=== PATIENT | female | born 1990 | race American Indian/Alaskan Native ===

== ENCOUNTER 2017-11-05 13:20 | Inpatient (IN) | payer MEDICAID ==
[2017-11-05] MEDS ORDERED: BRETHINE SUB-Q PRN (14:10)
[2017-11-05] MEDS ORDERED: POLYCILLIN/NS 2 GM/100 ML 2 GM/100 ML BAG IV ONE ×2 (14:10→16:00)
[2017-11-05] MEDS ORDERED: STADOL IV PRN (14:10)
[2017-11-05] MEDS ORDERED: MINERAL OIL PO PRN (14:10)
[2017-11-05] MEDS ORDERED: XYLOCAINE 2% INFILTRATI ONE (14:10)
[2017-11-05] MEDS ORDERED: ePHEDrine SULFATE IV PRN ×2 (14:10→17:26)
[2017-11-05] MEDS ORDERED: BRETHINE IVP PRN (14:10)
[2017-11-05] MEDS ORDERED: SUBLIMAZE IV PRN (14:10)
[2017-11-05 15:34] LABS: Hematocrit 37.4 % (30.3-42.9); Hemoglobin 12.4 gm/dl (10.1-14.3); Mean Corpuscular HGB Conc 33 % (30-34); Mean Corpuscular Hemoglobin 32 pg (28-32); Mean Corpuscular Volume 95 fl (79-97); Platelet Count 190 K/mm3 (140-440); Red Blood Count 3.93 M/mm3 (3.65-5.03); Red Cell Distribution Width 14.3 % (13.2-15.2); White Blood Count 11.7 K/mm3 (4.5-11.0)
[2017-11-05] MEDS: LACTATED RINGERS 1,000 ML IV SCH ×3 (15:36→17:09)
[2017-11-05] MEDS ORDERED: NARCAN 2 MG/2 ML IV PRN (17:26)
--- NOTE | 2017-11-05 17:26 | Anesthesia Consultation ---
Anesthesia Consult and Med Hx Date of service: 11/05/17 - Airway Anesthetic Teeth Evaluation: Good ROM Head & Neck: Adequate Mental/Hyoid Distance: Adequate Mallampati Class: Class II Intubation Access Assessment: Probably Good - Pre-Operative Health Status ASA Pre-Surgery Classification: ASA2 Proposed Anesthetic Plan: Epidural, Spinal - Pulmonary Hx Asthma: No COPD: No Hx Pneumonia: No - Cardiovascular System Hx Hypertension: No - Central Nervous System Hx Seizures: No Hx Psychiatric Problems: No - Endocrine Hx Renal Disease: No Hx End Stage Renal Disease: No Hx Hypothyroidism: No Hx Hyperthyroidism: No - Hematic Hx Anemia: No Hx Sickle Cell Disease: No - Other Systems Hx Alcohol Use: No
[2017-11-05] MEDS ORDERED: POLYCILLIN/NS 1 GM/50 ML 1 GM/50 ML BAG IV SCH (18:00)
[2017-11-05] MEDS ORDERED: fentaNYL-BUPIV 2 MCG/ML-0.125% 200 MCG/100 ML BAG EPIDURAL SCH (18:00)
--- NOTE | 2017-11-05 18:20 | History and Physical Report ---
History of Present Illness Date of examination: 11/05/17 Date of admission: 11/05/17 14:57 Chief complaint: Leaking fluid, contractions History of present illness: Patient presents to triage today with c/o leaking fluid since 11:30am and painful contractions. She denies vaginal bleeding. She has a history of anemia this and vitamin D insufficiency. Currently on iron therapy. She is GBS positive. Past History Past Medical History: no pertinent history Past Surgical History: other (lymph node biopsy and removal) [employer] History: abnormal PAP smear, chlamydia Family/Genetic History: heart disease, hypertension, other (DVT, elevated cholesterol) Social history: single, other (living with significant other) - Obstetrical History Expected Date of Delivery: 11/02/17 Actual Gestation: 40 Week(s) 3 Day(s) : 4 Para: 1 Hx # Term Pregnancies: 1 Number of Pregnancies: 0 Spontaneous Abortions: 0 Induced : 2 Number of Living Children: 1 Medications and Allergies Allergies Allergy/AdvReac Type Severity Reaction Status Date / Time No Known Allergies Allergy Unverified 11/05/17 14:39 Home Medications Medication Instructions Recorded Confirmed Last Taken Type Multivitamin Tablet 1 tab PO DAILY 11/05/17 11/05/17 11/05/17 09:30 History Active Meds: Active Medications Butorphanol Tartrate (Stadol) 2 mg IV Q2H PRN PRN Reason: Pain , Severe (7-10) Last Admin: 11/05/17 15:55 Dose: 2 mg Ephedrine Sulfate (Ephedrine Sulfate) 10 mg IV Q2M PRN PRN Reason: Hypotension Ephedrine Sulfate (Ephedrine Sulfate) 10 mg IV Q2M PRN PRN Reason: Hypotension Fentanyl (Sublimaze) 100 mcg IV Q2H PRN PRN Reason: Labor Pain Lactated Ringer's (Lactated Ringers) 1,000 mls @ 125 mls/hr IV DIRECT PAULA Last Admin: 11/05/17 17:09 Dose: 125 mls/hr Oxytocin/Sodium Chloride (Pitocin/Ns 20 Unit/1000ml Drip) 20 units in 1,000 mls @ 125 mls/hr IV DIRECT PAULA Ampicillin Sodium (Polycillin/Ns 1 Gm/50 Ml) 1 gm in 50 mls @ 100 mls/hr IV Q4H PAULA PRN Reason: Protocol Fentanyl/Bupivacaine/Sodium Chlor (Fentanyl-Bupiv 2 Mcg/Ml-0.125%) 200 mcg in 100 mls @ 12 mls/hr EPIDURAL TITR PAULA PRN Reason: Protocol Last Admin: 11/05/17 18:07 Dose: 12 mls/hr Mineral Oil (Mineral Oil) 30 ml PO QHS PRN PRN Reason: Constipation Naloxone HCl (Narcan 2 Mg/2 Ml) 0.2 mg IV Q5M PRN PRN Reason: Respiratory sedation Terbutaline Sulfate (Brethine) 0.25 mg SUB-Q ONCE PRN PRN Reason: Hyperstimulation/Hypertonicity Terbutaline Sulfate (Brethine) 0.25 mg IVP ONCE PRN PRN Reason: Hyperstimulation/Hypertonicity Review of Systems All systems: negative - Vital Signs Vital signs: Vital Signs Pulse BP 77 101/64 11/05/17 13:44 11/05/17 13:44 Temp Pulse Resp BP Pulse Ox 97.8 F 77 18 93/50 99 11/05/17 17:04 11/05/17 18:13 11/05/17 17:04 11/05/17 18:13 11/05/17 18:12 - Physical Exam Breasts: Positive: deferred Cardiovascular: Regular rate, Normal S1, Normal S2, No murmurs Lungs: Positive: Clear to auscultation, Normal air movement Abdomen: Positive: normal appearance, soft Genitourinary (Female): Positive: normal external genitalia, normal perenium Vulva: both: normal Vagina: Positive: normal moisture Uterus: Positive: normal size, normal contour Anus/Rectum: Positive: normal perianal skin Extremities: Positive: normal Deep Tendon Reflex Grade: Normal +2 - Obstetrical FHR: auscultation normal, category 1 FHR comments: baseline 130, moderate variability, + accels, no decels Uterine Contraction Monitor Mode: External Cervical Dilatation: 4 (per RN) Cervical Effacement Percentage: 80 (per RN) station: -2 (per RN) Uterine Contraction Frequency (min): 1.5-4 Uterine Contraction Pattern: Regular Results Result Diagrams: 11/05/17 15:16 Abnormal lab results 11/05/17 Range/Units 15:16 WBC 11.7 H (4.5-11.0) K/mm3 All other labs normal. Assessment and Plan A: - Patient Problems (1) 40 weeks gestation of Current Visit: Yes Status: Acute (2) Active labor Current Visit: Yes Status: Acute Plan to address problem: Continuous EFM Antibiotics for GBS prophylaxis Epidural for pain management Anticipate vaginal delivery (3) Spontaneous rupture of amniotic membranes Current Visit: Yes Status: Acute Plan to address problem: Cervical exam prn Anticipate vaginal delivery (4) Group B streptococcal carriage complicating Current Visit: Yes Status: Acute Plan to address problem: Start Ampicillin 2gm IV the 1gm q4h until delivery
[2017-11-05] MEDS: PITOCin/NS 20 UNIT/1000ML DRIP 20 UNITS/1,000 ML BAG IV SCH ×2 (19:27→22:04)
[2017-11-05] MEDS ORDERED: LANSINOH TP PRN (20:17)
[2017-11-05] MEDS ORDERED: BENADRYL PO PRN (20:17)
[2017-11-05] MEDS ORDERED: DULCOLAX PR PRN (20:17)
[2017-11-05] MEDS ORDERED: PHENERGAN PR PRN (20:17)
[2017-11-05] MEDS ORDERED: NORCO 5/325 PO PRN (20:17)
[2017-11-05] MEDS ORDERED: ZOFRAN IV PRN (20:17)
[2017-11-05] MEDS ORDERED: PHENERGAN PO PRN (20:17)
[2017-11-05] MEDS ORDERED: TYLENOL PO PRN (20:17)
[2017-11-05] MEDS ORDERED: MILK OF MAGNESIA PO PRN (20:17)
--- NOTE | 2017-11-05 20:32 | Procedure Note ---
OB Delivery Note - Delivery Date of Delivery: 11/05/17 (19:21) Surgeon: RUBEN GABRIEL Estimated blood loss: 200cc - Vaginal Delivery presentation: vertex Delivery position: OA Intrapartum events: none Delivery induction: none Delivery monitor: external FHT, external uterine Route of delivery: (@ 19:21) Delivery placenta: spontaneous (@ 19:27) Delivery cord: nuchal cord (x1, loose. Reduced prior to delivery of body), 3 umbilical vessels Episiotomy: none Delivery laceration: 2nd degree (perineal) Delivery repair: vicryl (3-0) Anesthesia: epidural Delivery comments: of a vigorous term 9lbs 0oz female at 19:21 over 2nd degree perineal laceration with Dr. Jensen in attendance. CAN x1 noted after deliver of head and was reduced prior to delivery of body. Baby was placed [id number] on maternal abdomen and cord clamping delayed x4 mins. The umbilical cord was double-clamped by me and cut by FOB. Spontaneous delivery of placenta @ 19:27, [place]. Fundal massage and IV Pitocin bolus initiated. Fundus F/ML/U-2. Small lochia present. 2nd degree perineal laceration noted and repaired with a 3-0 vicryl needle under epidural anesthesia. Pt tolerated the procedure well. Mom and baby in stable condition. - A at 1 minute: 8 at 5 minutes: 9 Gender: Female (9lbs 0oz (4085gm))
[2017-11-05] MEDS ORDERED: MOTRIN PO SCH (21:00)
[2017-11-05] MEDS ORDERED: SODIUM CHLORIDE FLUSH SYRINGE 10 ML IV NR (21:00)
[2017-11-05] MEDS: TUCKS PAD TP PRN (22:42)
[2017-11-06] MEDS: MOTRIN PO SCH ×5 (03:58→23:14)
[2017-11-06] MEDS ORDERED: BOOSTRIX IM ONE (06:00)
[2017-11-06 08:35] LABS: Hematocrit 34.4 % (30.3-42.9); Hemoglobin 11.7 gm/dl (10.1-14.3)
--- NOTE | 2017-11-06 09:21 | Progress Note ---
Assessment and Plan A: PPD #1 -stable P; GBS +, consider discharge tomorrow or Th Subjective - Subjective Date of service: 11/06/17 Principal diagnosis: Patient reports: appetite normal : doing well Objective - Vital Signs Latest vital signs: Vital Signs Temp Pulse Resp BP BP Pulse Ox 11/06/17 04:25 98.2 F 80 20 97/56 11/05/17 22:43 99.8 F H 94 H 20 106/59 11/05/17 21:07 93 H 105/63 11/05/17 21:00 99.0 F 20 11/05/17 20:52 95 H 109/66 11/05/17 20:37 85 105/57 11/05/17 20:22 102 H 101/57 11/05/17 20:07 93 H 108/51 17 19:52 95 H 108/61 17 19:45 98.9 F 20 11/05/17 19:33 73 120/53 17 19:24 88 102/51 93 17 19:22 82 100 18/17 19:20 82 98/55 17 19:17 84 100 1817 19:14 72 97/52 1817 19:12 79 100 1817 19:09 87 89 1817 19:07 70 100 1817 19:04 78 89 17 19:03 68 99/55 18/17 19:02 68 100 1817 18:59 71 97/55 1817 18:57 93 H 100 18/17 18:53 61 96/61 82 L 18/17 18:52 78 100 18/17 18:49 72 98/59 18/17 18:47 80 100 18/17 18:45 75 100/54 18/17 18:42 87 99 18/17 18:39 82 102/53 18/17 18:37 73 98 18/17 18:35 93 H 94 18/17 18:34 89 133/97 18/17 18:32 78 100 18/17 18:29 78 101/59 18/17 18:27 79 100 12/18/17 18:25 73 100/54 12/18/17 18:22 72 100 12/18/17 18:18 71 95/54 12/18/17 18:17 86 100 12/18/17 18:13 77 93/50 12/18/17 18:12 81 99 12/18/17 18:09 76 98/54 12/18/17 18:07 75 100 12/18/17 18:03 89 98/58 12/18/17 18:02 81 100 12/18/17 17:58 78 95/56 12/18/17 17:57 73 99 12/18/17 17:54 75 91/53 12/18/17 17:52 78 100 12/18/17 17:49 80 98/55 12/18/17 17:47 86 99 12/18/17 17:43 83 83/49 12/18/17 17:42 80 91/53 98 12/18/17 17:40 84 88/53 12/18/17 17:38 77 83/48 12/18/17 17:37 85 97 12/18/17 17:36 76 92/52 12/18/17 17:34 91 H 91/55 12/18/17 17:32 83 95/52 99 12/18/17 17:30 74 96/55 12/18/17 17:28 77 95/53 12/18/17 17:27 77 98 12/18/17 17:26 74 92/55 12/18/17 17:24 77 93/55 12/18/17 17:23 80 96/54 12/18/17 17:22 85 99 12/18/17 17:17 88 99 12/18/17 17:12 89 100 12/18/17 17:08 79 110/62 12/18/17 17:07 77 100 12/18/17 17:04 97.8 F 91 H 18 110/62 100 12/18/17 15:55 18 12/18/17 15:32 94 H 98 12/18/17 15:27 83 97 12/18/17 15:25 99 H 89 12/18/17 15:22 87 99 12/18/17 15:17 92 H 99 12/18/17 15:14 110 H 86 12/18/17 15:12 86 96 12/18/17 15:07 89 99 11/05/17 15:01 87 98 11/05/17 14:56 93 H 97 11/05/17 14:52 77 113/70 11/05/17 14:51 94 H 98 11/05/17 14:09 98.0 F 18 11/05/17 13:44 77 101/64 Intake and Output 11/05/17 11/06/17 11/06/17 22:59 06:59 14:59 Intake Total 520.833 360 Output Total 1400 1100 Balance -879.167 -740 Intake: IV 520.833 Lactated Ringers 1,000 ml 193.750 @ 125 mls/hr IV DIRECT PAULA Rx#:[id number] PITOCin/NS 20 UNIT/1000ML 327.083 DRIP 20 units In 1,000 ml @ 125 mls/hr IV DIRECT PAULA Rx#:[id number] Oral 360 Output: Urine 1400 1100 Void 1400 1100 Other: Total, Intake Amount 120 Total, Output Amount 600 500 # Voids Void 1 Estimated Blood Loss 200 - Exam Breasts: Present: deferred Cardiovascular: Present: Regular rate Lungs: Present: Clear to auscultation Abdomen: Present: soft Vulva: both: normal Uterus: Present: fundal height below umbilicus Extremities: Present: normal Deep Tendon Reflex Grade: Normal +2 - Labs Labs: Abnormal lab results 11/05/17 Range/Units 15:16 WBC 11.7 H (4.5-11.0) K/mm3
[2017-11-06] MEDS: PRENATAL VITAMIN PO SCH (11:23)
[2017-11-07] MEDS: MOTRIN PO SCH ×2 (05:15→12:25)
[2017-11-07] MEDS: PRENATAL VITAMIN PO SCH (09:02)
[2017-11-07] MEDS: TUCKS PAD TP PRN (09:02)
--- NOTE | 2017-11-07 10:33 | Progress Note ---
Assessment and Plan A: PP Day #2 Stable P: Follow Routine Orders D/C Home today Depo Provera prior to discharge RTO in 6 Weeks Subjective - Subjective Date of service: 11/07/17 Principal diagnosis: Patient reports: appetite normal, voiding normally, pain well controlled, flatus , bowel movement, ambulating normally [place]: doing well Objective - Vital Signs Latest vital signs: Vital Signs Temp Pulse Resp BP BP 11/07/17 08:15 98.7 F 71 18 98/63 11/07/17 00:19 98.6 F 20 95/53 11/06/17 16:00 98.3 F 73 18 95/57 11/06/17 12:28 97.7 F 67 18 107/49 Intake and Output 11/06/17 11/07/17 11/07/17 22:59 06:59 14:59 Intake Total 480 360 240 Balance 480 360 240 Intake: Oral 480 240 Intake, Free Water 360 Other: Total, Intake Amount 240 240 # Voids Void 1 2 1 - Exam Breasts: Present: normal Cardiovascular: Present: Regular rate Lungs: Present: Clear to auscultation, Normal air movement Abdomen: Present: normal appearance, soft, normal bowel sounds Uterus: Present: normal, firm, fundal height below umbilicus Extremities: Present: normal
--- NOTE | 2017-11-07 10:34 | Discharge Summary ---
Providers - Providers Date of Admission: 11/05/17 14:57 Date of discharge: 11/07/17 Attending physician: DES OCAMPO MD Primary care physician: DES OCAMPO MD Hospitalization Reason for admission: rupture of membranes Delivery: Episiotomy: none Laceration: 2nd degree Other procedures: none complications: none Discharge diagnosis: IUP at term delivered [place] baby: female Condition at discharge: Good Disposition: DC-01 TO HOME OR SELFCARE Plan - Provider Discharge Summary Activity: routine, no sex for 6 weeks, no heavy lifting 4 weeks, no strenuous exercise Diet: routine Instructions: routine Additional instructions: [] Smoking cessation referral if applicable(refer to patient education folder for contact #) [] Refer to [facility] Book[facility] Call your doctor immediately for: * Fever > 100.5 * Heavy vaginal bleeding ( >1 pad per hour) * Severe persistent headache * Shortness of breath * Reddened, hot, painful area to leg or breast * Drainage or odor from incision. * Keep incision clean and dry at all times and follow doctor's instructions regarding bathing/showering - Follow up plan Follow up: DES OCAMPO MD [Primary Care Provider] - 6 Weeks
[2017-11-07] MEDS ORDERED: DEPO-PROVERA (CONTRACEPTION) IM NR (11:00)
[2017-11-07 19:00] VITALS: BP 101/59
== END 2017-11-07 20:22 | disposition home or self-care (01) | DRG 775 ==
LOC: TRG 13:20 → EDBD 14:57 → LD 14:57 → OB 22:11
PROVIDERS: ADMIT Obstetrics & Gynecology; ATTEND Obstetrics & Gynecology
PROC: 10E0XZZ Delivery of Products of Conception, External Approach (ICD-10-PCS; principal; 2017-11-05)
PROC: 0KQM0ZZ Repair Perineum Muscle, Open Approach (ICD-10-PCS; 2017-11-05)
PROC: 3E0R3BZ Introduction of Anesthetic Agent into Spinal Canal, Percutaneous Approach (ICD-10-PCS; 2017-11-05)
PROC: 00HU33Z Insertion of Infusion Device into Spinal Canal, Percutaneous Approach (ICD-10-PCS; 2017-11-05)
PROC: 3E0234Z Introduction of Serum, Toxoid and Vaccine into Muscle, Percutaneous Approach (ICD-10-PCS; 2017-11-06)
DX: O99.824 Streptococcus B carrier state complicating childbirth (principal); Z3A.40 40 weeks gestation of pregnancy; Z37.0 Single live birth; Z23 Encounter for immunization; O99.02 Anemia complicating childbirth; D64.9 Anemia, unspecified; O69.1XX0 Labor and delivery complicated by cord around neck, with compression, not applicable or unspecified; O70.1 Second degree perineal laceration during delivery
CPT/HCPCS: 36415; 85014; 85018; 85027; 86592; 86850; 86900; 86901; 90471; 90715; 99211; A6250; G0463; J0290; J0595; J1050; J2590; J7120